=== PATIENT | female | born 1990 | race African-American/Black ===

== ENCOUNTER 2017-01-29 03:34 | Emergency (ER) | payer SELFPAY ==
[~2017-01-29] VITALS: Ht 172.7 cm; Wt 112.0 kg
[2017-01-29 04:32] LABS: HEMATOCRIT 36.1 % (37.0-47.0); HEMOGLOBIN 12.5 g/dl (12.0-16.0); IMMATURE GRANULOCYTES 0.5 % (0.0-1.0); MEAN CELL VOLUME 94.3 fL CALC (80.0-100.0); MEAN CORPUSCULAR HGB 32.6 pG CALC (26.0-32.0); MEAN CORPUSCULAR HGB CONC 34.6 g/L CALC (32.0-36.0); NEUT# 2.61 thou/uL (2.00-7.15); RED BLOOD COUNT 3.83 mill/uL (4.20-5.60); RED CELL DISTRI WIDTH 12.7 % (11.5-15.5)
[2017-01-29 04:33] LABS: URINE BILIRUBIN - DIPSTICK NEGATIVE (NEGATIVE); URINE BLOOD DIPSTICK LARGE (NEGATIVE); URINE CLARITY TURBID; URINE COLOR DK. YELLOW; URINE GLUCOSE - DIPSTICK NEGATIVE (NEGATIVE); URINE KETONE NEGATIVE (NEGATIVE); URINE LEUK ESTERASE NEGATIVE (NEGATIVE); URINE NITRITE - DIPSTICK NEGATIVE (Negative); URINE PROTEIN - DIPSTICK TRACE mg/dL (NEG-TRACE)
[2017-01-29 04:41] LABS: URINE BACTERIA FEW hpf; URINE RBC 50-100 RBC/hpf (0-5); URINE SQUAMOUS EPITHELIAL CELL MODERATE EPI/hpf (0-FEW)
[2017-01-29 04:45] LABS: ALBUMIN 4.9 g/dL (3.2-5.0); ALKALINE PHOSPHATASE 56 u/l (38-126); AMYLASE 98 u/l (30-110); ANION GAP 18 (6-22 (CALC)); BILIRUBIN, TOTAL 1.1 mg/dL (0.0-1.4); BUN 9 mg/dL (7-17); BUN/CREATININE RATIO 13 (12-20 (CALC)); CALCIUM 9.4 mg/dL (8.4-10.2); CARBON DIOXIDE 25 mmol/l (22-30); CHLORIDE 107 mmol/l (95-108); CREATININE 0.7 mg/dL (0.5-1.0); GFR > 60 ML/MIN (>=60 (CALC)); GFR FOR AFR.AMER. > 60 ML/MIN (>=60 (CALC)); GLUCOSE 121 mg/dL (65-105); LIPASE 219 u/l (23-300); POTASSIUM 4.1 mmol/l (3.5-5.1); SGOT/AST 40 u/l (14-36); SGPT/ALT 54 u/l (9-52); SODIUM 146 mmol/l (137-146); TOTAL PROTEIN 8.3 g/dL (6.3-8.2)
[2017-01-29 06:46] VITALS: BP 115/73
== END 2017-01-29 06:55 | disposition home or self-care (01) | DRG 392 ==
LOC: ED 03:34
PROVIDERS: Emergency Medicine
DX: R10.9 Unspecified abdominal pain (principal); R11.2 Nausea with vomiting, unspecified
CPT/HCPCS: Q9967

== ENCOUNTER 2017-05-20 11:24 | Emergency (ER) | payer SELFPAY ==
[~2017-05-20] VITALS: Ht 172.7 cm; Wt 112.0 kg
[2017-05-20 12:44] LABS: URINE BILIRUBIN - DIPSTICK NEGATIVE (NEGATIVE); URINE BLOOD DIPSTICK NEGATIVE (NEGATIVE); URINE COLOR YELLOW; URINE GLUCOSE - DIPSTICK NEGATIVE (NEGATIVE); URINE KETONE NEGATIVE (NEGATIVE); URINE LEUK ESTERASE NEGATIVE (NEGATIVE); URINE NITRITE - DIPSTICK NEGATIVE (Negative); URINE PROTEIN - DIPSTICK NEGATIVE (NEG-TRACE); URINE SPECIFIC GRAVITY 1.015
[2017-05-20 12:46] LABS: URINE CLARITY CLEAR
[2017-05-20 12:47] LABS: BARBITURATES NEGATIVE (NEGATIVE); COCAINE NEGATIVE (NEGATIVE); HEMATOCRIT 39.6 % (37.0-47.0); HEMOGLOBIN 13.6 g/dl (12.0-16.0); IMMATURE GRANULOCYTES 0.3 % (0.0-1.0); MEAN CELL VOLUME 94.5 fL CALC (80.0-100.0); MEAN CORPUSCULAR HGB 32.5 pG CALC (26.0-32.0); MEAN CORPUSCULAR HGB CONC 34.3 g/L CALC (32.0-36.0); METHADONE NEGATIVE (NEGATIVE); NEUT# 2.25 thou/uL (2.00-7.15); OXCYCODONE NEGATIVE (NEGATIVE); RED BLOOD COUNT 4.19 mill/uL (4.20-5.60); RED CELL DISTRI WIDTH 12.2 % (11.5-15.5); TETRAHYDROCANNABIONOL POSITIVE (NEGATIVE); TRICYLIC ANTIDEPRESSANTS NEGATIVE (NEGATIVE)
[2017-05-20 12:59] LABS: ALBUMIN 4.8 g/dL (3.2-5.0); ALKALINE PHOSPHATASE 59 u/l (38-126); ANION GAP 18 (6-22 (CALC)); BUN 10 mg/dL (7-17); BUN/CREATININE RATIO 14 (12-20 (CALC)); CALCIUM 9.6 mg/dL (8.4-10.2); CARBON DIOXIDE 23 mmol/l (22-30); CHLORIDE 109 mmol/l (95-108); CREATININE 0.7 mg/dL (0.5-1.0); GFR > 60 ML/MIN (>=60 (CALC)); GFR FOR AFR.AMER. > 60 ML/MIN (>=60 (CALC)); GLUCOSE 107 mg/dL (65-105); LIPASE 362 u/l (23-300); POTASSIUM 4.4 mmol/l (3.5-5.1); SGOT/AST 42 u/l (14-36); SGPT/ALT 59 u/l (9-52); SODIUM 145 mmol/l (137-146)
[2017-05-20] MEDS ORDERED: ULTRAM50 M1 PO (13:08)
[2017-05-20] MEDS ORDERED: BENTYL20 MG PO (13:08)
[2017-05-20] MEDS ORDERED: ZOFRAN4 MG/TAB PO (13:08)
[2017-05-20 13:34] VITALS: BP 138/110
== END 2017-05-20 13:47 | disposition home or self-care (01) | DRG 392 ==
LOC: ED 11:24
PROVIDERS: Emergency Medicine
DX: K52.9 Noninfective gastroenteritis and colitis, unspecified (principal); R10.84 Generalized abdominal pain; R11.2 Nausea with vomiting, unspecified

== ENCOUNTER 2017-08-16 18:47 | Emergency (ER) | payer BC ==
[~2017-08-16] VITALS: Ht 172.7 cm; Wt 114.0 kg
[~2017-08-16 18:47] MED LIST: BENTYL20 MG PO; ULTRAM50 M1 PO; ZOFRAN4 MG/TAB PO
[2017-08-16] MEDS ORDERED: KEFLEX500 M1 PO (19:16)
[2017-08-16] MEDS ORDERED: PERCOCET 5/325M1 TAB PO (19:16)
[2017-08-16 19:37] VITALS: BP 134/85
== END 2017-08-16 19:36 | disposition home or self-care (01) | DRG 603 ==
LOC: ED 18:47
DX: L02.11 Cutaneous abscess of neck (principal)

== ENCOUNTER 2017-11-16 16:17 | Emergency (ER) | payer BC ==
[~2017-11-16] VITALS: Ht 172.7 cm; Wt 100.0 kg
[~2017-11-16 16:17] MED LIST changes: +CELEBREX200 M1; +KEFLEX500 M1 PO; +PERCOCET 5/325M1 TAB PO
[2017-11-16] MEDS ORDERED: CYCLOBENZAPRIN7.5 M1 PO (16:49)
[2017-11-16] MEDS ORDERED: CELECOXIB200 MG PO (16:50)
[2017-11-16 17:24] LABS: URINE BILIRUBIN - DIPSTICK NEGATIVE (NEGATIVE); URINE BLOOD DIPSTICK NEGATIVE (NEGATIVE); URINE COLOR YELLOW; URINE GLUCOSE - DIPSTICK NEGATIVE (NEGATIVE); URINE KETONE NEGATIVE (NEGATIVE); URINE LEUK ESTERASE NEGATIVE (NEGATIVE); URINE NITRITE - DIPSTICK NEGATIVE (Negative); URINE PROTEIN - DIPSTICK NEGATIVE (NEG-TRACE); URINE SPECIFIC GRAVITY 1.025; URINE UROBILINOGEN - DIPSTICK 0.2 E.U./dL (0.2)
[2017-11-16 17:25] LABS: HEMOGLOBIN 12.6 g/dl (12.0-16.0); IMMATURE GRANULOCYTES 0.4 % (0.0-1.0); MEAN CELL VOLUME 95.6 fL CALC (80.0-100.0); MEAN CORPUSCULAR HGB 32.6 pG CALC (26.0-32.0); MEAN CORPUSCULAR HGB CONC 34.1 g/L CALC (32.0-36.0); NEUT# 5.08 thou/uL (2.00-7.15); RED BLOOD COUNT 3.87 mill/uL (4.20-5.60); RED CELL DISTRI WIDTH 12.5 % (11.5-15.5)
[2017-11-16 17:26] LABS: URINE CLARITY CLEAR
[2017-11-16 17:36] LABS: COCAINE NEGATIVE (NEGATIVE); METHADONE NEGATIVE (NEGATIVE); TETRAHYDROCANNABIONOL POSITIVE (NEGATIVE)
[2017-11-16 17:37] LABS: BARBITURATES NEGATIVE (NEGATIVE); OXCYCODONE NEGATIVE (NEGATIVE); TRICYLIC ANTIDEPRESSANTS NEGATIVE (NEGATIVE)
[2017-11-16 17:51] LABS: ALKALINE PHOSPHATASE 70 u/l (38-126); ANION GAP 13 (6-22 (CALC)); BILIRUBIN, TOTAL 0.7 mg/dL (0.0-1.4); BUN 10 mg/dL (7-17); BUN/CREATININE RATIO 15 (12-20 (CALC)); CARBON DIOXIDE 22 mmol/l (22-30); CHLORIDE 109 mmol/l (95-108); CREATININE 0.7 mg/dL (0.5-1.0); ETHYL ALCOHOL 0 mg/dl (0-30); GFR > 60 ML/MIN (>=60 (CALC)); GFR FOR AFR.AMER. > 60 ML/MIN (>=60 (CALC)); LIPASE 429 u/l (23-300); POTASSIUM 4.1 mmol/l (3.5-5.1); SGOT/AST 29 u/l (14-36); SGPT/ALT 56 u/l (9-52); SODIUM 140 mmol/l (137-146); TOTAL PROTEIN 7.6 g/dL (6.3-8.2)
[2017-11-16] MEDS ORDERED: ONDANSETRON4 MG PO (18:03)
[2017-11-16] MEDS ORDERED: ULTRAM50 M1 PO (18:03)
[2017-11-16 18:10] VITALS: BP 126/79
== END 2017-11-16 18:10 | disposition home or self-care (01) | DRG 440 ==
LOC: ED 16:17
PROVIDERS: Emergency Medicine
DX: K85.90 Acute pancreatitis without necrosis or infection, unspecified (principal)

== ENCOUNTER 2017-12-24 07:17 | Day surgery (SDC) | payer BC ==
[~2017-12-24] VITALS: Ht 172.7 cm; Wt 113.4 kg
[~2017-12-24 07:17] MED LIST changes: +CELECOXIB200 MG PO; +CYCLOBENZAPRIN7.5 M1 PO; +ONDANSETRON4 MG PO
[2017-12-24] MEDS ORDERED: GABAPENTIN PO (08:11)
[2017-12-24] MEDS ORDERED: HYDROCODONE/ACE1 TAB PO (10:52)
[2017-12-24 14:45] VITALS: BP 108/74
== END 2017-12-24 11:15 | disposition home or self-care (01) | DRG 552 ==
LOC: ORM 07:17
PROVIDERS: ATTEND Anesthesiology Pain Medicine
PROC: 3E0T3BZ Introduction of Anesthetic Agent into Peripheral Nerves and Plexi, Percutaneous Approach (ICD-10-PCS; principal; 2017-12-24)
PROC: 3E0T33Z Introduction of Anti-inflammatory into Peripheral Nerves and Plexi, Percutaneous Approach (ICD-10-PCS; 2017-12-24)
PROC: BR161ZZ Fluoroscopy of Lumbar Facet Joint(s) using Low Osmolar Contrast (ICD-10-PCS; 2017-12-24)
PROC: 3E0T3BZ Introduction of Anesthetic Agent into Peripheral Nerves and Plexi, Percutaneous Approach (ICD-10-PCS; 2017-12-24)
PROC: 3E0T33Z Introduction of Anti-inflammatory into Peripheral Nerves and Plexi, Percutaneous Approach (ICD-10-PCS; 2017-12-24)
PROC: 3E0T3BZ Introduction of Anesthetic Agent into Peripheral Nerves and Plexi, Percutaneous Approach (ICD-10-PCS; 2017-12-24)
PROC: 3E0T33Z Introduction of Anti-inflammatory into Peripheral Nerves and Plexi, Percutaneous Approach (ICD-10-PCS; 2017-12-24)
DX: M54.5 Low back pain (principal); M46.96 Unspecified inflammatory spondylopathy, lumbar region; M46.04 Spinal enthesopathy, thoracic region

== ENCOUNTER 2018-03-04 07:55 | Day surgery (SDC) | payer BC ==
[~2018-03-04] VITALS: Ht 172.7 cm; Wt 113.4 kg
[~2018-03-04 07:55] MED LIST changes: +GABAPENTIN PO; +HYDROCODONE/ACE1 TAB PO
[2018-03-04] MEDS ORDERED: MEDDOSEPAK PO (08:37)
[2018-03-04 09:37] LABS: HCG SERUM/URINE (NEG/POS) NEGATIVE (NEGATIVE)
[2018-03-04] MEDS ORDERED: HYDROCODONE/ACE1 TAB PO (10:19)
[2018-03-04 11:36] VITALS: BP 115/68
== END 2018-03-04 10:53 | disposition home or self-care (01) | DRG 552 ==
LOC: ORM 07:55
PROVIDERS: ATTEND Anesthesiology Pain Medicine
PROC: 3E0T3TZ Introduction of Destructive Agent into Peripheral Nerves and Plexi, Percutaneous Approach (ICD-10-PCS; principal; 2018-03-04)
DX: M54.5 Low back pain (principal); M12.9 Arthropathy, unspecified

== ENCOUNTER 2018-05-27 06:29 | Day surgery (SDC) | payer BC ==
[~2018-05-27] VITALS: Ht 172.7 cm; Wt 113.4 kg
[~2018-05-27 06:29] MED LIST changes: +MEDDOSEPAK PO
[2018-05-27 07:56] VITALS: BP 115/68
== END 2018-05-27 08:05 | disposition home or self-care (01) | DRG 74 ==
LOC: ORM 06:29
PROVIDERS: ATTEND Anesthesiology Pain Medicine
PROC: 3E0T3BZ Introduction of Anesthetic Agent into Peripheral Nerves and Plexi, Percutaneous Approach (ICD-10-PCS; principal; 2018-05-27)
PROC: 3E0T33Z Introduction of Anti-inflammatory into Peripheral Nerves and Plexi, Percutaneous Approach (ICD-10-PCS; 2018-05-27)
DX: M79.2 Neuralgia and neuritis, unspecified (principal); M54.5 Low back pain

== ENCOUNTER 2018-08-15 17:00 | Emergency (ER) | payer BC ==
[~2018-08-15] VITALS: Ht 172.7 cm; Wt 109.1 kg
[~2018-08-15 17:00] MED LIST changes: +PHENTERMINE37.5 MG PO
[2018-08-15] MEDS ORDERED: AMOXICILLIN500 MG PO (19:25)
[2018-08-15 19:36] VITALS: BP 122/72
== END 2018-08-15 19:36 | disposition home or self-care (01) | DRG 605 ==
LOC: ED 17:00
DX: S00.33XA Contusion of nose, initial encounter (principal); Y04.0XXA Assault by unarmed brawl or fight, initial encounter

== ENCOUNTER 2018-09-02 07:14 | Day surgery (SDC) | payer BC ==
[~2018-09-02] VITALS: Ht 172.7 cm; Wt 108.9 kg
[~2018-09-02 07:14] MED LIST changes: +AMOXICILLIN500 MG PO
[2018-09-02] MEDS ORDERED: HYDROCODONE/ACE1 TAB PO (10:09)
[2018-09-02 10:18] VITALS: BP 124/67
== END 2018-09-02 11:06 | disposition home or self-care (01) | DRG 74 ==
LOC: ORM 07:14
PROVIDERS: ATTEND Anesthesiology Pain Medicine
PROC: 3E0 Administration, Physiological Systems and Anatomical Regions, Introduction (ICD-10-PCS; principal; 2018-09-02)
DX: G58.9 Mononeuropathy, unspecified (principal); M79.2 Neuralgia and neuritis, unspecified